=== PATIENT | female | born 1990 | race Caucasian/White ===

== ENCOUNTER → 2022-02-03 | Outpatient (CLI) | payer OTHER ==
[~2022-02-03] MED LIST: ABILIFY10 MG PO; COLACE 100MG C100 MG PO; COLACE100 MG PO; CYMBALTA30 MG PO; GABAPENTIN800 MG PO; IBUPROFEN600 MG PO; LAMICTAL150 MG PO; NORCO 10-325 T1 EACH PO; PERCOCET 10-321 EACH PO; VALIUM5 MG PO
== END ==
LOC: HEART 5 13:24
DX: I87.2 Venous insufficiency (chronic) (peripheral) (principal)
CPT/HCPCS: 93970